=== PATIENT | male | born 1980 ===

== ENCOUNTER 2025-01-09 13:41 | Emergency (ER) | payer SELFPAY ==
[~2025-01-09] VITALS: Ht 170.2 cm; Wt 61.4 kg
[2025-01-09 13:50] VITALS: BP 110/68; PULSE 75; RESP 16; TEMP 99; O2SAT 99
--- NOTE | 2025-01-09 14:22 | ED.PDOC ---
History of Present Illness HPI Comments 44-year-old male brought by paramedics because they were called by innocent bystander because the patient was making noise on the street. He was [place] [employer] when the paramedics picked him up. He did use methamphetamine this morning. Heart rate was 75 with a blood pressure of 110/68. He does not want to answering any questions. No sign of any trauma. Moving all extremities. Chief Complaint: ALOC Time Seen by MD: 13:46 Reviewed Notes: Nurses Notes, Medications, Allergies Allergies: Coded Allergies: UNOBTAINABLE (Unverified , 01/09/25) Information Source: Emergency Med Personnel Mode of Arrival: EMS Severity: Moderate Timing: Hours Duration: Since onset Past Medical History PAST MEDICAL HISTORY: Denies Surgical History: Denies all surgeries Social History Smoker: Cigarettes Alcohol: Denies ETOH Use Drugs: Methamphetamine Constitutional: denies: chills, diaphoresis, fatigue, fever, malaise, sweats, weakness, others EENTM: denies: blurred vision, double vision, ear bleeding, ear discharge, ear drainage, ear pain, ear ringing, eye pain, eye redness, hearing loss, mouth pain, mouth swelling, nasal discharge, nose bleeding, nose congestion, nose pain, photophobia, tearing, throat pain, throat swelling, voice changes, others Respiratory: denies: cough, hemoptysis, orthopnea, SOB at rest, shortness of breath, SOB with excertion, stridor, wheezing, others Cardiovascular: denies: chest pain, dizzy spells, diaphoresis, Dyspnea on exertion, edema, irregular heart beat, left arm pain, lightheadedness, palpitations, PND, syncope, others Gastrointestinal: denies: abdomen distended, abdominal pain, blood streaked bowels, constipated, diarrhea, dysphagia, difficulty swallowing, hematemesis, melena, nausea, poor appetite, poor fluid intake, rectal bleeding, rectal pain, vomiting, others Genitourinary: denies: burning, dysuria, flank pain, frequency, hematuria, incontinence, penile discharge, penile sore, pain, testicle pain, testicle swelling, urgency, others Neurological: denies: dizziness, fainting, headache, left sided numbness, left sided weakness, numbness, paresthesia, pre-existing deficit, right sided numbness, right sided weakness, seizure, speech problems, tingling, tremors, weakness, others Musculoskeletal: denies: back pain, gout, joint pain, joint swelling, muscle pain, muscle stiffness, neck pain, others Integumetry: denies: bruises, change in color, change in hair/nails, dryness, laceration, lesions, lumps, rash, wounds, others Allergic/Immunocompromised: denies: Difficulty Healing, Frequent Infections, Hives, Itching, others Hematologic/Lymphatic: denies: anemia, blood clots, easy bleeding, easy bruising, swollen glands, others Endocrine: denies: excessive hunger, excessive sweating, excessive thirst, excessive urination, flushing, intolerance to cold, intolerance to heat, unexplained weight gain, unexplained weight loss, others Psychiatric: denies: anxiety, bipolar disorder, depression, hopeless, panic disorder, schizophrenia, sleepless, suicidal, others Physical Exam General Appearance: Moderate Distress HEENT: Normal ENT Inspection, Pharynx Normal, TMs Normal Neck: Full Range of Motion, Non-Tender, Normal, Normal Inspection Respiratory: Chest Non-Tender, Lungs Clear, No Accessory Muscle Use, No Respiratory Distress, Normal Breath Sounds Cardiovascular: No Edema, No JVD, No Murmur, No Gallop, Normal Peripheral Pulses, Regular Rate/Rhythm Breast Exam: Deferred Gastrointestinal: No Organomegaly, Non Tender, No Pulsatile Mass, Normal Bowel Sounds, Soft Genitalia: Deferred Pelvic: Deferred Rectal: Deferred Extremities: No calf tenderness, Normal capillary refill, Normal inspection, Normal range of motion, Non-tender, No pedal edema Musculoskeletal : Apperance: Normal Neurologic: Alert, transportation officer II-XII nml as Tested, No Motor Deficits, Normal Affect, Normal Mood, No Sensory Deficits Cerebellar Function: NOT DONE Reflexes: NOT DONE Skin: Dry, Normal Color, Warm Peripheral Pulses: 3+ Radial (R), 3+ Radial (L) Lymphatic: No Adenopathy Was a procedure done? Was a procedure done?: No Differential Dx Considerations may include: Alcohol abuse Dehydration X-Ray, Labs, Meds, VS Vital Signs Date Time Temp Pulse Resp B/P (MAP) Pulse Ox O2 Delivery O2 Flow Rate FiO2 01/09/25 13:50 99.0 75 16 110/68 99 99.0 Lab Test 01/09/25 14:41 Range/Units Plasma/Serum Blood Alcohol < 3.0 <10 mg/dL Current Medications Medications (Trade) Dose Ordered Sig/Rommel Route Start Time Stop Time Status Last Admin Sodium Chloride 1,000 ml @ 1,000 mls/hr Q1H ONCE IV 01/09/25 14:30 01/09/25 15:29 DC 01/09/25 14:52 Patient alert. Vitals stable. Does not want to answering any questions. Moving all extremities. Establish intravenous access. Was given fluids. Counseled patient on effects of drinking for 15 minutes. Counseled patient on effects of smoking cigarettes for [address] of the head reviewed does not show any acute changes. Explained to the patient. Was told to follow up with his primary care physician. Was told to come back if there is any problem. Time of 1ST Reevaluation: 14:19 Reevaluation 1ST: Improved Patient Education/Counseling: Diagnosis, Treatment, Prognosis, Need For Follow Up Family Education/Counseling: No Family Present SEPSIS Sepsis Screen Date sepsis recognized/suspect: Jan 09, 2025 Time Sepsis recognized/suspect: 1350 Recent Procedure: No On Antibiotic Therapy: No Respiratory Rate >20: No Heart Rate >90: No Temp<36 C (96.8 F) or >38.3 C: No SBP <90 or MAP <65 mmHG: No New Acute Mental Status Change: Yes Is the patient on CPAP, BIPAP,: No Physician Orders Head Without Contrast (01/09/25 14:16) Bicycle Designer (01/09/25 14:16) Vital Signs Date Time Temp Pulse Resp B/P (MAP) Pulse Ox O2 Delivery O2 Flow Rate FiO2 01/09/25 13:50 99.0 75 16 110/68 99 99.0 Medications Medications Dose Ordered Sig/Rommel Route Start Time Stop Time Status Last Admin Dose Admin Sodium Chloride 1,000 ml @ 1,000 mls/hr Q1H ONCE IV 01/09/25 14:30 01/09/25 15:29 DC 01/09/25 14:52 Departure 1 Departure Time of Disposition: 14:21 Impression: Primary Impression: Alcohol abuse Additional Impression: Dehydration Disposition: 07 LEFT AWOL/ELOPED Condition: Good Discharged With: Self Critical Care Note Critical Care Time?: No Stability Stability form required: No Heart Score Heart Score: Heart Score Response (Comments) Value History N/A 0 EKG N/A 0 Age N/A 0 Risk Factors N/A 0 Troponin N/A 0 Total 0 SUMAN AYALA MD Jan 09, 2025 14:22
[2025-01-09] MEDS: SODIUM CHLORIDE 0.9% 1,000 ML IV ONE (14:52)
--- NOTE | 2025-01-09 15:41 | DVH ---
Procedure: CT HEAD WITHOUT CONTRAST Study Date and Requested Time: 01/09/2025 02:51 PM History: altered Comparison: None Dose: CTDI: 56.09 mGy DLP: 2209.08 mGycm Technique: Multiplanar images obtained through the brain without intravenous contrast. Findings: Study slightly limited by motion artifact. Mild diffuse brain atrophy. No significant chronic small-vessel ischemic changes. Right posterior cer ebellar hypodensity which may represent encephalomalacia versus possible arachnoid cyst measuring up to 1.6 x 1.7 x 1.9 cm. No hemorrhages, midline shift, herniation or cytotoxic edema following a large vascular territory. N o intra-axial or extra-axial fluid collections. No evidence of hydrocephalus. The basal cisterns are patent. The pituitary gland, sella and parasellar regions are unremarkable. The cerebellar tonsils are in nor mal position. The left lens is not visualized. Question Left lens replacement. Otherwise, orbits and globes are un remarkable.. The paranasal sinuses and mastoids are clear. There are no worrisome calvarial lesions. Right high convexity parietal scalp edema/scarring with associated focus of calcification. Impression: Study slightly limited by motion artifact. Right posterior cerebellar hypodensity which may represent chronic infarct versus possible arachnoid cyst. Otherwise, no evidence of acute intracranial abnormalities. If symptoms persist, consider MRI for further evaluation.
== END 2025-01-09 16:28 | disposition left against medical advice (07) ==
LOC: ER 13:41 → EDBD 13:41 → ER 16:28
DX: F10.10 Alcohol abuse, uncomplicated (principal); E86.0 Dehydration; F17.210 Nicotine dependence, cigarettes, uncomplicated; F19.90 Other psychoactive substance use, unspecified, uncomplicated; Y90.9 Presence of alcohol in blood, level not specified
CPT/HCPCS: 36415; 70450; 80320; 96360; 99284; J7030